=== PATIENT | male | born 1945 | race Caucasian/White ===

== ENCOUNTER 2016-06-22 02:20 | Inpatient (IN) ==
--- NOTE | 2016-06-15 16:06 | EKG Report ---
Test Performed on : 06/15/2016 3:32:38 PM Test Reason : PAT Blood Pressure : / mmHG Vent. Rate : 063 BPM Atrial Rate : 063 BPM P-R Int : 174 ms QRS Dur : 108 ms QT Int : 418 ms P-R-T Axes : 059 -48 111 degrees QTc Int : 427 ms Normal sinus rhythm. 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
[2016-06-15 17:08] LABS: MANUAL DIFF NEEDED? NO
[2016-06-15 17:23] LABS: BASO% 0.4 % (0.0-0.8); EOS# 0.12 X1000 (0.0-0.7); EOS% 1.5 % (0.0-10.0); HEMATOCRIT 29.3 % (42.0-52.0); HEMOGLOBIN 9.8 g/dL (14.0-18.0); IMM GRAN# 0.04 X1000 (0.0-0.04); IMM GRAN% 0.5 % (0.0-0.5); LYMPH# 2.12 X1000 (1.2-3.4); LYMPH% 27.1 % (20.5-51.1); MCHC 33.4 g/dL (33-37); MCV 95.8 FL (81-99); MONO# 0.98 X1000 (0.11-0.59); MONO% 12.5 % (1.7-9.3); PLT 296 X1000 (130-400); RBC 3.06 XMIL (4.7-6.1)
[2016-06-15 17:26] LABS: INR 0.99; PROTIME 10.4 Seconds (9.2-11.7); PTT 25.7 Seconds (22.0-36.0)
[2016-06-15 17:44] LABS: AGAP 11; BUN 8 mg/dL (8-22); CALCIUM 9.4 mg/dL (8.8-10.2); CHLORIDE 91 mmol/L (98-107); COSMO 257; POTASSIUM 4.6 mmol/L (3.5-5.1); SODIUM 128 mmol/L (136-145); TCO2 26 mmol/L (25-35)
[2016-06-22] MEDS ORDERED: CELECOXIB 400 MG PO PRN (07:00)
[2016-06-22] MEDS ORDERED: AMBIEN PO PRN (07:00)
[2016-06-22] MEDS ORDERED: FLOMAX PO PRN (07:00)
[2016-06-22] MEDS ORDERED: ZOFRAN ODT PO PRN (07:00)
[2016-06-22] MEDS ORDERED: MORPHINE IV PRN (07:02)
[2016-06-22] MEDS ORDERED: KLOR-CON PO SCH (09:00)
[2016-06-22] MEDS ORDERED: SINGULAIR PO SCH (09:00)
[2016-06-22] MEDS ORDERED: REGLAN ONE (11:45)
[2016-06-22] MEDS ORDERED: PEPCID ONE (11:45)
[2016-06-22] MEDS ORDERED: LYRICA ONE (11:45)
[2016-06-22] MEDS ORDERED: COLACE ONE (11:45)
[2016-06-22] MEDS ORDERED: KEFZOL 1 GM/D5W 1 GM/50 ML IVPB ONE (11:46)
[2016-06-22] MEDS ORDERED: LR 1,000 ML ONE (11:46)
[2016-06-22] MEDS ORDERED: CELEBREX ONE (11:46)
[2016-06-22] MEDS ORDERED: LANOXIN PO ONE (12:45)
[2016-06-22] MEDS ORDERED: TORADOL ONE (13:10)
[2016-06-22] MEDS ORDERED: DURAMORPH ONE (13:10)
[2016-06-22] MEDS ORDERED: VANCOMYCIN ONE (13:10)
[2016-06-22] MEDS ORDERED: MARCAINE 0.25% PF/EPI 1:200,000 ONE (13:11)
[2016-06-22] MEDS ORDERED: CYKLOKAPRON 1,000 MG/NS 1,000 MG/100 ML IVPB ONE ×2 (13:11→13:12)
[2016-06-22] MEDS ORDERED: SODIUM CHLORIDE 0.9% ONE (13:11)
[2016-06-22] MEDS ORDERED: EXPAREL 1.3% ONE (13:12)
[2016-06-22] MEDS ORDERED: CLAVE SECONDARY SET 11953 ONE (13:12)
[2016-06-22] MEDS ORDERED: NEOSPORIN G.U. IRRIGANT ONE (13:12)
[2016-06-22 14:31] LABS: URINE SOURCE CATH
[2016-06-22 14:43] LABS: BILIRUBIN URINE NEGATIVE (NEGATIVE); BLOOD URINE NEGATIVE (NEGATIVE); COLOR YELLOW; GLUCOSE URINE NEGATIVE (NEGATIVE); LEUKOCYTES URINE NEGATIVE (NEGATIVE); NITRITE URINE NEGATIVE (NEGATIVE); PROTEIN URINE 30 mg/dL (NEGATIVE); SP GRAVITY URINE 1.021; TURBIDITY URINE CLEAR (CLEAR); UROBILINOGEN URINE NORMAL (NORMAL)
[2016-06-22 14:44] LABS: URINE MICRO REVIEW NEEDED? YES
[2016-06-22 14:54] LABS: UR EPITHELIAL CELLS <10 /HPF (<10); URINE BACTERIA NEGATIVE /HPF; URINE RBC <10 /HPF (<10); URINE WBC <10 /HPF (<10)
[2016-06-22] MEDS ORDERED: AMARYL PO SCH (15:00)
[2016-06-22 15:14] LABS: URINE CASTS NONE SEEN; URINE CRYSTALS NONE SEEN; URINE SMALL ROUND CELLS NONE SEEN
--- NOTE | 2016-06-22 16:01 | OPERATIVE NOTE ---
PROCEDURE DATE: 06/22/2016 PREOP DIAGNOSIS: Painful right total knee arthroplasty. POSTOP DIAGNOSIS: Loose right total knee arthroplasty on both the femoral and tibial components. OPERATIVE PROCEDURE: Revision femoral and tibial components, right knee replacement. SURGEON: Elvin Limon MD. NETWORK SECURITY ANALYST: Raghav Morris. ANESTHESIA: General. COMPLICATIONS: None. PROCEDURE IN DETAIL: A 70-year-old male who presents for surgical revision of a right knee replacement. Risks, benefits, and no guarantees were discussed, and he is willing to proceed. He was taken the operating room and satisfactory anesthesia obtained. The right leg was prepped and draped in usual sterile fashion. A time-out was taken to confirm operative site, procedure, and patient. The leg was wrapped with an Esmarch and tourniquet inflated to 350 mmHg. The previous anterior incision was utilized and a medial quad sparing arthrotomy incision created. Cultures were taken from the joint which later showed no evidence of infection or bacteria. The joint was exposed and both the femur and the tibial component noted to be loosely bonded. The femur was gently lifted off with a circumferential dissection with a Gigli saw or osteotome. The cement bone interface on the femur was loose. Afterwards, the tibial component was noted to be loose between the tibial metal and the cement and the tibial metal component removed. The cement was then removed with a saw or osteotome as necessary. Sequential broaching of the tibia with a Site[employer]ins MBT tibial tray system was utilized up to a 16 inch intramedullary stem. The proximal aspect was broached for a metaphyseal sleeve which was noted to be a 53 sleeve. After achieving fixation of the tibia the femur was prepared with the [employer] TC3 femoral system. Distal femoral cut was re-cut just basically at the same level as it was with the finishing cut. A posterior augment was required on the lateral side of 4 mm and on the medial side an 8 mm. The femur and tibia was sized with a size 4 femoral component and size 4 tibial component. Intramedullary stem on the femoral ended up being an 18 with a 75 mm stem connected to a 48 femoral sleeve. Trialing with a 20 mm poly revealed good range of motion and stability. The trial components were removed and the bony surfaces thoroughly irrigated with pulsatile lavage. Cement with a gram of vancomycin was then used to cement the tibial stemmed implant and the femoral stemmed implant into the proper geometry. Final components were as measured a 75 x 18 femoral stem, a size 4, 8 mm medial augment posteriorly, and a size 4, 4 mm lateral augment posteriorly with a 46 porous femoral sleeve and a 5 degree femoral adapter. The tibial component was a size 4 TC3 tibial component with a 53 metaphyseal sleeve and a 75 x 16 stem. The joint capsule was injected with Exparel for pain management. A Hemovac drain was placed. A 20 mm size 4 rotating platform TC3 poly was inserted and the knee reduced. Final range of motion was 0-120 degrees with midline patellar tracking. The arthrotomy was copiously irrigated with irrigant. It was then closed over the drain with #1 Vicryl in the arthrotomy, 2-0 Vicryl in the subcutaneous, and skin arnulfo on the skin edges. Sterile dressings completed the closure and the patient was recovered from anesthesia and transferred to recovery room in stable condition. No intraoperative complications were noted. Instrument count and sponge count was correct at time of closure. cc: Tim Limon MD
[2016-06-22] MEDS ORDERED: NS 1,000 ML ONE (16:10)
--- NOTE | 2016-06-22 16:50 | Diag Imaging Result Document ---
PROCEDURE NAME: KNEE 1-2 VIEWS-RIGHT - 06/22/2016 RIGHT KNEE PORTABLE 2 VIEWS: FINDINGS: There has been total knee arthroplasty. This is apparently a revision of the arthroplasty which was present on 03/24/2016. There are still calcifications in the superficial femoral artery. There appears to be appropriate alignment. IMPRESSION: 1. Postsurgical changes. 2. Atherosclerosis.
[2016-06-22] MEDS ORDERED: ZOFRAN ONE (17:06)
[2016-06-22] MEDS ORDERED: NEO-SYNEPHRINE ONE (17:07)
[2016-06-22] MEDS ORDERED: XYLOCAINE-MPF 2% ONE (17:07)
[2016-06-22] MEDS ORDERED: ROBINUL ONE (17:07)
[2016-06-22] MEDS ORDERED: AMIDATE ONE (17:07)
[2016-06-22] MEDS ORDERED: PIGGYBACK SET 7393 ONE (17:07)
[2016-06-22] MEDS ORDERED: OFIRMEV 1000 MG/ISOTONIC SOLN 1,000 MG/100 ML BOTTLE ONE (17:07)
[2016-06-22] MEDS ORDERED: DECADRON ONE (17:07)
[2016-06-22] MEDS ORDERED: NS 250 ML ONE (17:07)
[2016-06-22] MEDS: LASIX PO SCH (18:31)
[2016-06-22] MEDS: DETROL PO SCH (18:32)
[2016-06-22] MEDS: NEURONTIN PO SCH ×2 (18:34→21:50)
[2016-06-22] MEDS: NORCO-10 PO PRN ×2 (18:47→22:30)
[2016-06-22] MEDS: GLUCOPHAGE XR PO SCH (18:47)
[2016-06-22] MEDS: ADVAIR 500/50 DISKUS INH SCH (19:24)
[2016-06-22] MEDS ORDERED: CELEXA PO SCH (21:00)
[2016-06-22] MEDS ORDERED: CRESTOR PO SCH (21:00)
[2016-06-22] MEDS: KEFZOL 1 GM/D5W 1 GM/50 ML IVPB IV SCH (21:40)
[2016-06-22] MEDS: NS 1,000 ML IV SCH (21:45)
[2016-06-22] MEDS: PERIDEX MT SCH (21:50)
[2016-06-22] MEDS: COREG PO SCH (21:50)
[2016-06-22] MEDS: PRINIVIL PO SCH (21:51)
[2016-06-23] MEDS ORDERED: ATIVAN PO PRN (00:09)
[2016-06-23] MEDS: NS 1,000 ML IV SCH (05:06)
[2016-06-23] MEDS: KEFZOL 1 GM/D5W 1 GM/50 ML IVPB IV SCH (05:06)
[2016-06-23] MEDS: NORCO-10 PO PRN (05:46)
[2016-06-23 05:57] LABS: HEMATOCRIT 27.7 % (42.0-52.0); HEMOGLOBIN 9.2 g/dL (14.0-18.0)
[2016-06-23] MEDS ORDERED: XARELTO PO SCH (06:00)
[2016-06-23 06:19] LABS: CALCIUM 8.7 mg/dL (8.8-10.2); POTASSIUM 4.6 mmol/L (3.5-5.1)
[2016-06-23] MEDS ORDERED: PROTONIX PO SCH (07:00)
[2016-06-23] MEDS ORDERED: LANOXIN PO SCH (07:00)
[2016-06-23] MEDS: ADVAIR 500/50 DISKUS INH SCH (07:38)
[2016-06-23] MEDS ORDERED: FLOMAX PO SCH (09:00)
[2016-06-23] MEDS ORDERED: CELEBREX PO SCH (09:00)
[2016-06-23] MEDS ORDERED: CELECOXIB 400 MG PO SCH (09:00)
[2016-06-23] MEDS: PERIDEX MT SCH (09:42)
[2016-06-23] MEDS: NEURONTIN PO SCH (09:43)
[2016-06-23] MEDS: LASIX PO SCH (09:43)
[2016-06-23] MEDS: COREG PO SCH (09:45)
[2016-06-23] MEDS: GLUCOPHAGE XR PO SCH (09:45)
[2016-06-23] MEDS: DETROL PO SCH (09:46)
[2016-06-23] MEDS: PRINIVIL PO SCH (09:47)
--- NOTE | 2016-06-23 11:15 | HISTORY AND PHYSICAL ---
CHIEF COMPLAINT: Right knee pain. HISTORY OF PRESENT ILLNESS: This is a 70-year-old, white male who had a right total knee arthroplasty performed in [place] about 8 years ago. He originally did well and started having problems with his knee again. He was evaluated in the office and found to need a revision of this right total knee arthroplasty. The surgical procedure, as well as risks and benefits were explained to the patient at this time who agreed to proceed. ALLERGIES: Codeine and aspirin. PAST MEDICAL HISTORY: Serious illnesses: COPD, hypertension, cardiac artery disease, diabetes and CVA. PAST SURGERIES: Right total knee arthroplasty. Eye surgery and right hip. REGULAR MEDICATIONS: Carvedilol 12.5 twice a day. Celecoxib p.r.n. pain. Celexa 20 one at night. Plavix 75 mg 1 a day, digoxin 125 mg 1 a day, Advair 1 twice a day. Lasix 20 once a day, gabapentin 100 twice a day. Glimepiride 2 mg once a day, hydrocodone p.r.n. pain, Prinivil 10 twice a day, lorazepam p.r.n., metformin 500 twice a day, Singulair 10 p.r.n., Zofran 4 p.r.n., Protonix 20 once a day, Klor-Con 10 mEq once a day, Crestor 10 once a day, Flomax 0.4 p.r.n., tolterodine 4 mg once a day. REVIEW OF SYSTEMS: Neuro: Has history of CVA. He states this is affecting his right side somewhat. Heart: History of HI in 2011. No recent chest pain. Respiratory: He has a history of COPD. Abdomen: Has history of reflux and ulcers in the past. : He also has history of BPH with occasional difficulty urinating. PHYSICAL EXAMINATION: GENERAL: This is a 70-year-old male, alert and oriented. His primary care physician is Dr. Lopez. HEENT: Pupils equal, round, reactive. NECK: Fair range of motion without adenopathy. RESPIRATORY: Respirations are equal, unlabored, clear bilaterally. Slightly shallow. No respiratory distress. HEART: Regular rate and rhythm. ABDOMEN: Soft, nontender. Bowel sounds present. EXTREMITIES: He complains of pain in his right knee. He has a well-healed incision. Slightly anterior deformity. He states he has difficulty walking. The pain sometimes goes down his leg. IMPRESSION: Failed right total knee arthroplasty. PLAN: Admit at this time. Revision of right total knee arthroplasty. Dictated by Sergei Dean RN for Tim Limon MD This chart was documented by the indicated scribe, Sergei Dean RN and accurately reflects the services I performed and decisions made by me, Tim Limon MD, as attested by the provider's signature. cc: Tim Limon MD
[2016-06-23 15:43] VITALS: BP 112/47
[2016-06-23] MEDS ORDERED: PLAVIX PO SCH (21:00)
--- NOTE | 2016-06-24 06:18 | DISCHARGE SUMMARY ---
ADMISSION DATE: 06/22/2016 DISCHARGE DATE: 06/23/2016 ADMITTING DIAGNOSES: 1. Painful right total knee arthroplasty. 2. Chronic obstructive pulmonary disease. 3. Hypertension. 4. Coronary artery disease. 5. Diabetes mellitus. 6. Cerebrovascular accident. DISCHARGE DIAGNOSES: 1. Painful right total knee arthroplasty. 2. Painful right total knee arthroplasty. 3. Chronic obstructive pulmonary disease. 4. Hypertension. 5. Coronary artery disease. 6. Diabetes mellitus. 7. Cerebrovascular accident. ADMITTING HISTORY AND HOSPITAL COURSE: Mr. Schofield is a 70-year-old white male who was having pain after having a total knee arthroplasty about eight years ago. He had surgery to revise that on 06/22/2016. After surgery, he remained afebrile. His vital signs remained stable. His incision looks good, clean and dry but no signs or symptoms of infection or DVT. This morning his hematocrit is 27.7. We will plan to discharge him home today with home health. He currently is ambulating about 250 feet with a front wheel walker and we plan to send him home with home health today. DISCHARGE MEDICATIONS: 1. Flomax 0.4 mg p.o. daily. 2. Singulair 10 mg p.o. daily. 3. Lorazepam 1 mg p.o. p.r.n. 4. Klor-Con 10 mEq p.o. daily. 5. Metformin 500 mg p.o. b.i.d. 6. Celexa 20 mg p.o. at bedtime. 7. Carvedilol 12.5 mg p.o. b.i.d. 8. Crestor 10 mg p.o. at bedtime. 9. Celebrex 200 mg p.o. p.r.n. for pain. 10. Digoxin 125 mcg p.o. daily. 11. [place] 10 1-2 p.o. q.4-6 hours p.r.n. for pain. 12. Gabapentin 100 mg p.o. b.i.d. 13. Advair Diskus 500-50 one inhaled b.i.d. 14. Plavix 75 mg p.o. at bedtime. 15. Ambien 5 mg p.o. p.r.n. a 16. Tolterodine Tartrate 4 mg p.o. daily. 17. Zofran 4 mg p.o. p.r.n. 18. Protonix 20 mg p.o. daily. 19. Glimepiride 2 mg p.o. daily. 20. Lasix 20 mg p.o. daily. 21. Lisinopril 10 mg p.o. daily. DISCHARGE PLAN: Mr. Schofield will be discharged home today where he will begin a home physical therapy regimen. Home health will be coming out and working with him in his own home. I talked with him about if has any worsening signs or symptoms, any drainage from his incision, any fever, chills or any problems, to call office immediately and let us know and we will be discharging him with some pain medication and he can continue his Plavix upon discharge for anticoagulant purposes. We will need to see him back in Dr. Limon's office in about 10 days where we can take the arnulfo out. Dictated by ZENA Milan for Tim Limon MD cc: ZENA Milan MD
== END 2016-06-23 16:02 | disposition home health service (06) ==
LOC: SURHOLD 02:20 → 4N 14:37
PROVIDERS: ADMIT Orthopaedic Surgery Adult Reconstructive Orthopaedic Surgery; ATTEND Orthopaedic Surgery Adult Reconstructive Orthopaedic Surgery

== ENCOUNTER 2016-09-06 12:11 | Inpatient (IN) ==
[2016-09-06] MEDS ORDERED: NS 1,000 ML IV ONE (12:40)
[2016-09-06 13:01] LABS: ALLEN TEST YES; BE 4.5 mmoll (-3.0-3.0); BLOOD TYPE ARTERIAL; DRAW SITE R RADIAL; METHB 1.3 % (0.0-1.5); MODALITY ROOM AIR; O2(CT) 9.3 mL/dL (15.0-23.0); PCO2(98.6) 35 mmHg (35-45); PO2(98.6) 74 mmHg (60-100); SAMPLE BLOOD; SAO2 96.7 % (95.0-100.0); THB 6.9 g/dL (11.5-17.4); pH(98.6) 7.51 (7.35-7.45)
--- NOTE | 2016-09-06 13:02 | Diag Imaging Result Doc PS360 ---
EXAM: CHEST-PORTABLE HISTORY: AMS TECHNIQUE: AP portable upright at 1255 COMMENT: There are granulomata in the right lower lobe. There is a pacemaker on the left. The heart size is slightly enlarged. There is apparent subsegmental atelectasis in the right costophrenic sulcus which was not present on 12/11/2015. Otherwise has been no significant change. IMPRESSION: Minimal right basilar atelectasis. Electronically signed by Vic Briggs 09/06/2016 1:00 PM
[2016-09-06] MEDS ORDERED: TYLENOL PR ONE (13:03)
--- NOTE | 2016-09-06 13:13 | EKG Report ---
Test Performed on : 09/06/2016 12:59:23 PM Test Reason : AMS Blood Pressure : / mmHG Vent. Rate : 088 BPM Atrial Rate : 088 BPM P-R Int : 184 ms QRS Dur : 102 ms QT Int : 402 ms P-R-T Axes : 062 -44 080 degrees QTc Int : 486 ms Normal sinus rhythm. Possible Left atrial enlargement Left axis deviation Anteroseptal infarct (cited on or before 30-OCT-2012) Abnormal ECG When compared with ECG of 15-JUN-2016 15:32, Nonspecific T wave abnormality no longer evident in Inferior leads T wave inversion less evident in Lateral leads QT has lengthened Unconfirmed Result
[2016-09-06 13:42] LABS: EOS# 0.01 X1000 (0.0-0.7); HEMATOCRIT 19.4 % (42.0-52.0); HEMOGLOBIN 6.7 g/dL (14.0-18.0); IMM GRAN# 0.09 X1000 (0.0-0.04); IMM GRAN% 0.4 % (0.0-0.5); LYMPH# 1.39 X1000 (1.2-3.4); MANUAL DIFF NEEDED? NO; MCH 31.6 PG (27-31); MCHC 34.5 g/dL (33-37); MCV 91.5 FL (81-99); MPV 9.7 FL (7.4-10.4); NEUT% 87.6 % (42.2-75.2); PLT 381 X1000 (130-400); RBC 2.12 XMIL (4.7-6.1)
[2016-09-06 13:59] LABS: INR 1.06; PROTIME 11.2 Seconds (9.2-11.7); PTT 26.7 Seconds (22.0-36.0)
[2016-09-06 14:00] LABS: ALBUMIN 3.3 g/dL (3.5-5.0); CALCIUM 8.5 mg/dL (8.8-10.2); POTASSIUM 3.2 mmol/L (3.5-5.1); TOTAL BILIRUBIN 0.46 mg/dL (0.20-1.00); TOTAL PROTEIN 5.7 g/dL (6.3-8.3)
--- NOTE | 2016-09-06 14:12 | Diag Imaging Result Doc PS360 ---
EXAM: HEAD W/O CONTRAST HISTORY: AMS TECHNIQUE: COMPARISON: 07/22/2014 FINDINGS: No parenchymal hemorrhage. No epidural or subdural hematoma. No subarachnoid hemorrhage. No mass identified on this noncontrasted exam. There is diffuse atrophy with prominent microvascular ischemic changes and old lacunas. No sinus opacification. IMPRESSION: No hemorrhage. Atrophy with chronic ischemic changes and old lacunes similar to the prior exam. Electronically signed by Pepe Portillo 09/06/2016 2:10 PM
[2016-09-06] MEDS ORDERED: TYLENOL ONE (14:18)
[2016-09-06] MEDS ORDERED: TYLENOL PO ONE (14:27)
[2016-09-06] MEDS ORDERED: VANCOMYCIN 1 GM/NS 1 GM/250 ML IVPB IV ONE (15:21)
--- NOTE | 2016-09-06 15:27 | PROVIDER DOCUMENTATION ---
This chart was entered by Swathi Zarco Scribe, acting as scribe for Vida Hunt MD. HPI-Abdominal Pain/GI Problem - General Chief Complaint: Altered Mental Status Stated Complaint: AMS-slow to repsond, vomiting Time Seen by Provider: 09/06/16 12:34 Source: patient, family () Allergies/Adverse Reactions: Patient Allergies Allergy/AdvReac Type Severity Reaction Status Date / Time codeine [Codeine] Allergy Severe NAUSEA/VOMI Verified 06/22/16 11:53 TING aspirin AdvReac NAUSEA/VOMI Verified 06/22/16 11:53 TING Home Medications: Home Medication List Medication Instructions Recorded Confirmed Last Taken Type Carvedilol 12.5 mg PO BID 10/30/12 09/06/16 09/05/16 12:00 History Metformin HCl [Glumetza] 500 mg PO BID 10/30/12 09/06/16 09/05/16 17:00 History Montelukast [Singulair] 10 mg PO DAILY PRN 10/30/12 09/06/16 09/05/16 12:00 History Tamsulosin [Flomax] 0.4 mg PO PRN PRN 10/30/12 09/06/16 09/05/16 12:00 History Celecoxib 200 mg PO PRN PRN 12/13/14 09/06/16 05/22/16 History Digoxin [Digitek] 125 mcg PO DAILY 12/13/14 09/06/16 09/05/16 12:00 History ROSUVAstatin [Crestor] 10 mg PO QHS 12/13/14 09/06/16 09/05/16 12:00 History Fluticasone/Salmeterol [Advair 1 each IH BID 11/06/15 09/06/16 05/22/16 History 500-50 Diskus] Gabapentin 100 mg PO BID 11/06/15 09/06/16 09/05/16 12:00 History Ondansetron [Zofran Odt] 4 mg PO PRN PRN 06/15/16 09/06/16 09/06/16 07:00 History Pantoprazole [Protonix] 20 mg PO DAILY@0700 06/15/16 09/06/16 09/05/16 11:00 History Tolterodine Tartrate [Tolterodine 4 mg PO DAILY 06/15/16 09/06/16 05/12/16 History Tartrate ER] Zolpidem [Ambien] 5 mg PO PRN PRN 06/15/16 09/06/16 05/12/16 History LISINOpril [Prinivil] 10 mg PO DAILY 06/22/16 09/06/16 09/05/16 12:00 History Hydrocodone/APAP 10 mg/325 mg 1 - 2 each PO Q6H PRN PRN #60 06/23/16 09/06/16 09/02/16 Rx [Doole-10] - History of Present Illness-ABD Nature of Presenting Problems: Pt is 70 y/o M presents to ED via EMS for abdominal pain. Pt's states N and V. Pt's states symptoms have been present for 2 days. Pt's states hypotension this am. Pt's states he is slow to respond as well. Pt's states emesis was brown and black in color. Pt's states recent loss of appetite and weight loss. Abdominal Pain Onset Location: reports: generalized abdomen Pain Radiation: reports: no radiation Quality of Pain: reports: aching, cramping Severity in ED: reports: mild Onset/Duration: reports: 2 days ago Timing: reports: still present Activities at Onset: reports: light activity Modifying Factors: improves with: nothing Associated Symptoms: reports: loss of appetite, nausea, vomiting, weakness. denies: anxiety, arm pain, back/neck pain, chest pain, constipation, cough, diaphoresis, diarrhea, dizziness, EENT symptoms, fatigue, fever/chills, genitourinary problems, headaches, heartburn, joint pain, malaise, muscle aches , sinus congestion/drainage, rash, seizure, shortness of breath, sensory/motor loss, pain with inspiration, swelling/mass in abdomen, syncope, trouble walking Last BM: unsure Dark Stools Present?: reports: none noticed Rectal Bleeding: reports: none Emesis Description: reports: other (brown and black) Bruising or Bleeding Gums?: No Similar Symptoms Previously?: Yes Recently seen or treated by another doctor?: No Review of Systems - Adult - REVIEW OF SYSTEMS - ADULT Constitutional: reports: weight loss. denies: chills, fever, fatique, weight gain Eyes: reports: no symptoms reported Ears, Nose, Mouth & Throat: reports: no symptoms reported Cardiovascular: reports: no symptoms reported Respiratory: reports: no symptoms reported Gastrointestinal: reports: abdominal pain, nausea, poor appetite, vomiting. denies: diarrhea Genitourinary: reports: no symptoms reported Musculoskeletal: reports: no symptoms reported Integumentary: reports: no symptoms reported Neurological: reports: no symptoms reported Psychiatric: reports: no symptoms reported Endocrine: reports: no symptoms reported Hematologic/Lymphatic: reports: no symptoms reported Allergic/Immunologic: reports: no symptoms reported All Other Systems: Reviewed and Negative Past History - Adult - PAST MEDICAL HISTORY-ADULT Review of Records: reports: Nursing Assessment Review, Medications Reviewed, Social history reviewed & non-contributory. Major Childhood Illnesses: reports: denies history Cardiovascular: reports: A-Fib, CAD, HTN Respiratory: reports: denies history Gastrointestinal: reports: denies history Obstetrical/Gynecological: reports: denies history Genitourinary: reports: denies history Musculoskeletal: reports: arthritis Neurological: reports: CVA Endocrine/Immune: reports: Diabetes Other Conditions: reports: denies history - PRIOR SURGERIES/PROCEDURES Surgical/Procedure History: reports: appendectomy, pacemaker, joint replacement - IMMUNIZATION STATUS Childhood Immunizations: See Nurse Assessment Flu Vaccine: See Nurse Assessment - FAMILY HISTORY Family History: reviewed, not pertinent - SOCIAL HISTORY Smoking: denies Substance Use: denies Living Situation: family Physical Exam-General - PHYSICAL EXAM-ADULT Initial Vital Signs Reviewed: Yes - CONSTITUTIONAL General Appearance: alert, no apparent distress, thin, slow to respond. negative: appears well (ill in appearance) - EYES Eyes: PERRL/EOMI, pink conjunctivae - HEAD, EARS, NOSE, MOUTH & THROAT HENMT: normocephalic/atraumatic. negative: moist mucous membranes (dry mucous membranes), pharyngeal erythema - NECK Neck: normal inspection - RESPIRATORY Respiratory: chest non-tender, lungs clear, normal breath sounds - CARDIOVASCULAR Cardiovascular: normal peripheral pulses, regular rate, rhythm - GASTROINTESTINAL (ABDOMEN) Abdominal Exam: normal bowel sounds, soft, tenderness (generalized) - GENITOURINARY Rectal Exam: normal rectal tone, black stool. negative: hemorrhoids, tenderness - LYMPHATIC Lymphatic: no adenopathy - MUSCULOSKELETAL Back Exam: normal inspection, no CVA tenderness, no vertebral tenderness Extremity: normal range of motion, non-tender, normal inspection - SKIN Integumentary: normal turgor, warm/dry, pallor - NEUROLOGIC Neurologic: grossly normal - PSYCHIATRIC Psych/Mental Status: oriented x 3, other (slow to response) Progress - PLAN OF CARE/RESULTS Progress/Plan/Lab Results: Vital Signs - 8 hr 09/06/16 12:13 Temperature 97.5 F L Pulse Rate 87 Respiratory Rate 18 Blood Pressure 86/43 O2 Sat by Pulse Oximetry 97 Laboratory Results - last 24 hr 09/06/16 12:50 Specimen Type ARTERIAL Sample Site R RADIAL pH 7.51 H pCO2 35 pO2 74 HCO3 28.4 H Base Excess 4.5 H Oxyhemoglobin 94.5 L ABG O2 Sat (Calculated) 9.3 L ABG O2 Saturation 96.7 ABG Carboxyhemoglobin 1.00 ABG Methemoglobin 1.3 Dominic Test YES A-a O2 Difference 32.0 Total Hemoglobin 6.9 L Lactate 3.60 H Blood Gas Modality ROOM AIR FiO2 % 21.0 Orders Category Date Time Status Cardiac Monitoring DIRECTED Care 09/06/16 12:40 Active Oxygen Therapy- ED Nursing DIRECTED Care 09/06/16 12:40 Active Saline Loc NOW Care 09/06/16 12:40 Active CHEST-PORTABLE [RAD] Stat Exams 09/06/16 12:40 Completed HEAD W/O CONTRAST [CT] Stat Exams 09/06/16 12:41 Ordered ABG [RESP] Routine Lab 09/06/16 12:50 Completed ALCOHOL BLOOD Stat Lab 09/06/16 12:40 Uncollected BLOOD CULTURE [BLDCUL] Stat Lab 09/06/16 13:03 Uncollected CBC WITH ELECTRONIC DIFF [HEME] Stat Lab 09/06/16 12:40 Uncollected CK PROFILE [SP CHEM] Stat Lab 09/06/16 12:40 Uncollected COMPREHENSIVE METABOLIC PANEL [CHEM] Stat Lab 09/06/16 12:40 Uncollected DIGOXIN [TDM] Stat Lab 09/06/16 13:03 Ordered PRO B-NATRIURETIC PEPTIDE Stat Lab 09/06/16 12:40 Uncollected PROTIME WITH INR [COAG] Stat Lab 09/06/16 12:40 Uncollected PTT [COAG] Stat Lab 09/06/16 12:40 Uncollected TROPONIN T Stat Lab 09/06/16 12:40 Uncollected URINALYSIS W/POSS RFLX CULT-1 [URINALYSIS] Stat Lab 09/06/16 12:40 Uncollected URINE DRUG SCREEN Stat Lab 09/06/16 12:40 Uncollected 0.9% Sodium Chloride Inj [Ns] 1,000 ml Med 09/06/16 12:40 Active IV 100 mls/hr Acetaminophen [Tylenol] Med 09/06/16 13:03 Discontinued 650 mg OR NOW ONE Pulse Oximetry Stat Oth 09/06/16 12:40 Active EKG [EKG] Stat Ther 09/06/16 12:40 Draft Result Diagrams: 09/06/16 13:19 09/06/16 13:19 - EKG 1 Time of EKG reading by physician:: 12:59 EKG Read and Signed by:: Vida Hunt EKG Interpretation (*Must complete 3 of following elements*): Abnormal ( anteroseptal infarct, age undetermined) Rate: 88 Rhythm: normal sinus rhythm Comments: possible left atrial enlargement; left axis deviation - XRAY 1 XRAY Study: Chest Impression: Abnormal XRAY Interpretation: minimal right basilar atelectasis - CT/MRI 1 CT Study: Head Impression: Abnormal (atrophy with chronic ischemic changes and old lacunes similar to the prior exam) - CONSULTS/PCP/HOSPITALIST Notification #1 *Consult/PCP/Hospitalist*: [facility]/Dr. Valenzuela Time Discussed: 15:26 Consult Disposition: Will see in ED, Admit Departure - Departure Date of Disposition Decision: 09/06/16 Time of Disposition Decision: 15:20 DIAGNOSIS: Hypotension, Upper GI bleed, Altered mental status, Anemia Disposition: ADMITTED INPATIENT 09 Certified Medical Emergency: Emergent Condition: Stable Additional Freetext Instructions: ED Follow Up Instructions: You have been treated by a care provider in the Emergency Department. These instructions are being provided to you so you can have an understanding of how to care for yourself upon discharge. Upon discharge from the Emergency Department, you are responsible for making arrangements for follow-up care by a physician of your choice. Take all prescribed medications as directed. Return to the Emergency Department immediately for any new or worsening symptoms. You may call the Physician Referral phone number at [phone] to obtain a list of Physicians who are taking new patients. Referrals and Follow-Ups: Wilian Lopez DO [Primary Care Provider] - - Critical Care Note This patient required my direct & personal management of CC.: Yes Total Time (mins): 35 Critical Care Statement: This patient required my direct personal management to treat or rule out processes, the absence of which, could potentiallly result in sudden, clinically significant life or limb threatening deterioration. This chart was documented by the indicated scribe, (Swathi Zarco Scribe) and accurately reflects the services I performed and decisions made by me, Vida Hunt MD, as attested by the provider's signature.
[2016-09-06] MEDS ORDERED: ZOSYN 3.375 GM/NS 3.375 GM/50 ML IVPB IV ONE (16:00)
[2016-09-06] MEDS ORDERED: LASIX IV PRN (16:32)
--- NOTE | 2016-09-06 16:41 | Diag Imaging Result Doc PS360 ---
EXAM: KNEE 3 VIEWS RIGHT INDICATION: possible septic arthritis TECHNIQUE: 3 views COMPARISON: 07/06/2016 FINDINGS: There has been a prior right knee arthroplasty. The arthroplasty hardware is in the expected position. There is no radiographic evidence of hardware loosening. There is no discrete fracture, dislocation, or significant intrinsic osseous lesion, otherwise. There are no new bony erosions. The surrounding soft tissues are essentially unremarkable. IMPRESSION: No definite acute pathology by plain radiograph. Electronically signed by Tim Linn 09/06/2016 4:39 PM
[2016-09-06] MEDS ORDERED: ZOFRAN IV PRN (16:54)
[2016-09-06] MEDS ORDERED: VANCOMYCIN IV PER PHARMACY MISC SCH (16:54)
[2016-09-06] MEDS ORDERED: MAGNESIUM SULFATE 2 GM/S.W.I. 2 GM/50 ML IVPB IV ONE (17:52)
[2016-09-06] MEDS ORDERED: LEVOPHED 8 MG in D5 1/2 NS 250 ML IV SCH (18:45)
[2016-09-06] MEDS: POTASSIUM CHLORIDE 20 MEQ/SWI 20 MEQ/100 ML IVPB IV SCH ×2 (18:50→22:46)
--- NOTE | 2016-09-06 19:21 | PROGRESS NOTE ---
DATE: 09/06/2016 We were called to the ER after an EKG was obtained and there was reported worsening ST-elevation in the anterior leads. After reviewing the EKG, indeed ST-elevation was slightly worse. We spoke with the patient. He denies any chest pain or shortness of breath at this time. We discussed the case and the EKGs with Dr. Angelo with cardiology, who felt that given the patient's lack of chest pain and resemblance of EKG to previous EKGs that the patient was not having ST-elevation, possibly fabienne-infarct ischemia secondary to profound anemia and hypotension. He would not recommend heart catheterization at this time given the patient's GI bleeding. Again, the patient is pain free. We are trending his enzymes, which are pending at this time. He will be going to the ICU for his anemia and hypotension but overall, currently the patient is stable and unchanged. Dictated by ZENA Ramírez for Puja Valenzuela MD cc: ZENA Ramírez MD
[2016-09-06] MEDS: DUONEB (A & A) INH SCH ×2 (19:30→23:10)
[2016-09-06 19:43] LABS: URINE SOURCE CATH
[2016-09-06] MEDS: PROTONIX 80 MG in NS 80 ML IV SCH (19:49)
--- NOTE | 2016-09-06 19:49 | HISTORY AND PHYSICAL ---
PCP: Dr. Wilian Lopez. COLLEGE ADMINISTRATOR: Dr. Harry Blanton. AIRCRAFT RESTORER: Dr. Limon. CHIEF COMPLAINT: Hypotension. HISTORY OF PRESENT ILLNESS: Mr. Schofield is a 70-year-old male with multiple medical problems including ischemic cardiomyopathy with a known EF of 20-25%, CAD, congestive heart failure, chronic hyponatremia and multiple others who presents with hypotension. Patient is a poor historian and is confused at this time, his is at the bedside able to answer questions. She reports that he had what she called flu-like symptoms starting on Tuesday which actually just consisted of vomiting. After looking back and speaking with the patient she did report that he was vomiting coffee-ground emesis and also having dark tarry and sticky stools consistent with melena. This morning the patient was hypotensive despite IV fluids. The patient was actually at [facility] 2 weeks ago for what the family reports is anemia and required blood transfusion. The patient's reports that he did not have a GI evaluation however we do not have those records at this time and we are currently requesting those from [facility]. The patient himself denies any abdominal pain. He does have some mild epigastric tenderness to palpation but otherwise his abdominal exam is within normal limits. When he got to the ER he had a host of laboratory abnormalities including profound anemia with a hemoglobin and hematocrit of 6 and 19 respectively, he was also noted to have leukocytosis with a white count of 23 and a left shift. ABG revealed metabolic alkalosis and a lactic acid of 3.6. His chemistry also reveal hyponatremia and hypokalemia with mild renal insufficiency. Imaging of the chest only showed minimal right basilar atelectasis. Head CT showed chronic change but nothing acute. The patient has been hypotensive with systolic blood pressure anywhere from 70-90. Type and screen has been ordered. We are going to transfuse the patient and put him in the ICU. PAST MEDICAL HISTORY: 1. Ischemic cardiomyopathy. 2. Systolic heart failure with known EF of 20-25% last done in 2014 but the family reports he had a complete cardiac workup done at [facility] 2 weeks ago. 3. Coronary artery disease. 4. Hypertension. 5. Hyperlipidemia. 6. Type 2 diabetes. 7. Chronic hyponatremia. 8. COPD. 9. Chronic anemia. 10. BPH. 11. History of CVA in 2011. SURGICAL HISTORY: He has had ICD, hip repair, right knee replacement, right knee arthroplasty revision done on 06/22/2016. SOCIAL HISTORY: Patient denies any tobacco, alcohol or drug use. He lives with his who is at the bedside. FAMILY HISTORY: Noncontributory. REVIEW OF SYSTEMS: Unable to obtain. HOME MEDICATIONS: Carvedilol 12.5 mg b.i.d., Celebrex 200 mg as needed by mouth, Digitek 125 mcg p.o. daily, Advair 550 one each inhaled b.i.d., Neurontin 100 mg p.o. b.i.d., [place] 10 as needed for pain, Prinivil 10 mg daily, metformin 500 mg b.i.d., Singulair 10 mg daily, Zofran 4 mg as needed for nausea, vomiting, Protonix 20 mg daily, Crestor 10 mg p.o. at bedtime, Flomax 0.4 mg p.o. as needed, tolterodine tartrate 4 mg daily, Ambien 5 mg at bedtime. ALLERGIES: Codeine and aspirin. PHYSICAL EXAMINATION: VITAL SIGNS: Blood pressure is 81/51, heart rate is 85, respiratory rate is 16 , O2 saturation 96% on nasal cannula, temperature is 97.5 degrees. GENERAL: This is a frail and elderly appearing 70-year-old male lying in hospital bed in no acute distress. NEUROLOGIC: The patient is awake and alert but he is confused. He follows commands without focal deficits. HEENT: Head is atraumatic and normocephalic. His pupils are equal, round, reactive to light. Oral mucosa is dry. Overall his mucous membranes are pale. NECK: Supple. Trachea is midline. CHEST: Clear to auscultation bilaterally. CV: Regular rate and rhythm. S1-S2 is noted. GI: Soft, nondistended. He does have some very mild epigastric tenderness to palpation. EXTREMITIES: Without edema, clubbing or cyanosis. Pulses diminished bilaterally. DIAGNOSTIC DATA: Head CT chronic changes. Chest x-ray minimal atelectasis, nothing acute. EKG sinus rhythm with diffuse ST-elevation but this is chronic after reviewing previous EKGs. Lab work. WBC 22.3, hemoglobin 6.7, hematocrit 19.4, platelet count 381,00, MCV 91.5, INR 1.06. ABG on room air pH 7.51, CO2 35, O2 74, bicarb 28.4, lactic acid 3.6. Sodium 128, potassium 3.2, chloride 85, CO2 26, anion gap 17, BUN 74, creatinine 1.3, glucose 227, calcium 8.5, bilirubin 0.46, AST 12, ALT 9, alkaline phosphatase 77, troponin 0.051, proBNP 3151, albumin 3.3. ASSESSMENT AND PLAN: 1. Toxic metabolic encephalopathy: Likely multifactorial to include hypotension , possible sepsis and possible dementia. Will search for and treat underlying conditions, monitor his neuro status closely, head CT does not show anything acute. He does not have any focal deficits. 2. Hypotension: The patient certainly has indicators for sepsis so we will treat him for underlying infection but given his vomiting and hematemesis as well as anemia we can assume he has profound hypovolemia. Will continue with fluids and blood products and being careful to not overload his heart. 3. Upper gastrointestinal bleed with associated anemia: Patient going to be placed in ICU. We are going to keep him n.p.o. and start Protonix drip. GI has been consulted and we are going to transfuse 2 units of PRBCs now. Will check iron studies in the morning. 4. Possible sepsis/leukocytosis: Blood cultures have been obtained and broad- spectrum antibiotics have been initiated. His right knee is swollen and warm to touch so we are going to check a knee x-ray and consult Dr. Limon for possible joint aspiration. In the meantime will continue antibiotics until cultures have returned. Will continue with IV fluids and check another lactic acid. 5. Possible septic arthritis: As above. 6. Hypovolemic hyponatremia: We are going to check iron studies and continue IV fluids. Check another sodium in the morning. 7. Hypokalemia: Magnesium has been ordered and IV potassium has been initiated as well. 8. 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 so we are going to get those records. 9. Ischemic cardiomyopathy/congestive heart failure: Patient denies any chest pain or shortness of breath, no other symptoms of fluid volume overload at this time. EKG does show some abnormalities but this seems to be chronic. Will trend out his enzymes and get records from [facility]. 10. Further recommendations to follow. We are going to give him SCDs for DVT prophylaxis given his bleeding and anemia. CRITICAL CARE TIME: With this patient 45 minutes. Dictated by ZENA Ramírez for Puja Valenzuela MD cc: Harry Valenzuela MD The patient was seen and examined by me. I agree with the assessment and plan as dictated. MTDD
[2016-09-06] MEDS ORDERED: VANCOMYCIN 1,800 MG in NS 500 ML IV ONE (20:00)
[2016-09-06 20:01] LABS: UR AMPHETAMINES QUAL NONE DETECTED (NONE DETECT); UR BARBITUATES QUAL NONE DETECTED (NONE DETECT); UR BENZODIAZEPIN QUAL NONE DETECTED (NONE DETECT); UR CANNABINOIDS QUAL NONE DETECTED (NONE DETECT); UR COCAINE QUAL NONE DETECTED (NONE DETECT); UR METHADONE QUAL NONE DETECTED (NONE DETECT); UR OPIATES QUAL NONE DETECTED (NONE DETECT); UR OXYCODONE QUAL NONE DETECTED (NONE DETECT); UR PCP QUAL NONE DETECTED (NONE DETECT)
[2016-09-06 20:02] LABS: UR CREAT RANDOM 63.8 mg/dL (14-26); UR PROT RANDOM 22.5 mg/dL
[2016-09-06 20:04] LABS: BILIRUBIN URINE NEGATIVE (NEGATIVE); BLOOD URINE NEGATIVE (NEGATIVE); COLOR YELLOW; GLUCOSE URINE NEGATIVE (NEGATIVE); LEUKOCYTES URINE LARGE (NEGATIVE); NITRITE URINE NEGATIVE (NEGATIVE); PROTEIN URINE NEGATIVE (NEGATIVE); SP GRAVITY URINE 1.017; TURBIDITY URINE HAZY (CLEAR); UROBILINOGEN URINE NORMAL (NORMAL)
[2016-09-06 20:07] LABS: URINE MICRO REVIEW NEEDED? YES
[2016-09-06 20:09] LABS: UR EPITHELIAL CELLS <10 /HPF (<10); URINE BACTERIA 1+ /HPF; URINE CULTURE NEEDED? YES; URINE RBC <10 /HPF (<10); URINE WBC TNTC /HPF (<10)
[2016-09-06 20:29] LABS: URINE CASTS NONE SEEN
[2016-09-06] MEDS: HUMALOG SUBQ SCH (21:32)
[2016-09-06 22:31] LABS: HEMATOCRIT 25.3 % (42.0-52.0); HEMOGLOBIN 8.5 g/dL (14.0-18.0)
[2016-09-06] MEDS: ZOSYN 3.375 GM/NS 3.375 GM/50 ML IVPB IV SCH (22:41)
[2016-09-07] MEDS: PROTONIX 80 MG in NS 80 ML IV SCH ×3 (03:37→22:43)
[2016-09-07] MEDS: ZOSYN 3.375 GM/NS 3.375 GM/50 ML IVPB IV SCH ×4 (04:26→22:21)
[2016-09-07] MEDS: DUONEB (A & A) INH SCH ×4 (04:57→16:11)
--- NOTE | 2016-09-07 06:09 | EKG Report ---
Test Performed on : 09/07/2016 05:25:28 AM Test Reason : Abnormal EKG Blood Pressure : / mmHG Vent. Rate : 076 BPM Atrial Rate : 076 BPM P-R Int : 190 ms QRS Dur : 104 ms QT Int : 396 ms P-R-T Axes : 065 -52 080 degrees QTc Int : 445 ms Normal sinus rhythm. Left anterior fascicular block Anterior infarct (cited on or before 30-OCT-2012) ACUTE LA / STEMI Abnormal ECG When compared with ECG of 06-SEP-2016 18:10, (Unconfirmed) ST no longer elevated in Lateral leads Confirmed by Manolo SANTOS, Ted Mcelroy ([id number]) on 09/07/2016 2:17:09 PM
[2016-09-07] MEDS: HUMALOG SUBQ SCH ×4 (06:19→19:59)
[2016-09-07 06:21] LABS: HEMATOCRIT 26.5 % (42.0-52.0); HEMOGLOBIN 9.2 g/dL (14.0-18.0); MCH 31.3 PG (27-31); MCHC 34.7 g/dL (33-37); MCV 90.1 FL (81-99); MPV 9.6 FL (7.4-10.4); RBC 2.94 XMIL (4.7-6.1)
--- NOTE | 2016-09-07 06:25 | EKG Report ---
Test Performed on : 09/06/2016 5:33:24 PM Test Reason : possible elevation Blood Pressure : / mmHG Vent. Rate : 087 BPM Atrial Rate : 087 BPM P-R Int : 190 ms QRS Dur : 092 ms QT Int : 400 ms P-R-T Axes : 062 -49 080 degrees QTc Int : 481 ms Normal sinus rhythm. Possible Left atrial enlargement Left anterior fascicular block Anterolateral infarct (cited on or before 30-OCT-2012) Abnormal ECG When compared with ECG of 06-SEP-2016 12:59, (Unconfirmed) Questionable change in initial forces of Septal leads ST now depressed in Inferior leads ST elevation now present in Lateral leads Unconfirmed Result
--- NOTE | 2016-09-07 06:35 | EKG Report ---
Test Performed on : 09/06/2016 6:10:45 PM Test Reason : No Order in [facility] Blood Pressure : / mmHG Vent. Rate : 088 BPM Atrial Rate : 088 BPM P-R Int : 190 ms QRS Dur : 100 ms QT Int : 400 ms P-R-T Axes : 062 -46 080 degrees QTc Int : 484 ms Normal sinus rhythm. Possible Left atrial enlargement Left anterior fascicular block Anteroseptal infarct (cited on or before 30-OCT-2012) ACUTE MA / STEMI Abnormal ECG When compared with ECG of 06-SEP-2016 18:08, (Unconfirmed) No significant change was found Unconfirmed Result
[2016-09-07 06:53] LABS: AGAP 15; BUN 60 mg/dL (8-22); CALCIUM 8.6 mg/dL (8.8-10.2); CHLORIDE 97 mmol/L (98-107); COSMO 287; POTASSIUM 3.4 mmol/L (3.5-5.1); SODIUM 133 mmol/L (136-145); TCO2 21 mmol/L (25-35)
--- NOTE | 2016-09-07 07:04 | CONSULTATION ---
DATE OF CONSULTATION: 09/07/2016 REFERRING PHYSICIAN: Puja Valenzuela M.D. PRIMARY CARE PHYSICIAN: Wilian Lopez M.D. FORENSIC EXAMINER: Harry Blanton M.D. INDICATION FOR CONSULTATION: 1. Coffee-ground emesis. 2. Melena. HISTORY OF PRESENT ILLNESS: The patient is a 70-year-old white male with multiple medical problems including ischemic cardiomyopathy with an ejection fraction of 20-25%, coronary artery disease, congestive heart failure, hyponatremia, diabetes mellitus 2 and COPD who presented with hypotension. According to his , he began to have nausea and vomiting on Tuesday. She noted that the emesis was coffee-ground in appearance. He also began to have black tarry stools over the weekend consistent with melena. In the last 4-6 hours prior to admission, they were unable to obtain a blood pressure and he was unable to sit up. He was profoundly weak at the time of presentation. He was previously admitted to [facility] approximately 2 weeks ago. He was found to be significantly anemic and required blood transfusion. However, according to the family, the patient did not undergo endoscopic evaluation. He had a stroke approximately 5 years ago and was fed via percutaneous endoscopic gastrostomy tube for several weeks. However, approximately 10 days after hospital discharge, the PEG was removed and he was able to tolerate a regular diet. His family reports that for the last month to 6 weeks, his appetite has decreased and he has been having diarrhea on a regular basis. We are asked to perform endoscopic evaluation to identify the source of bleeding, and to assist with management of his diarrhea. PAST MEDICAL HISTORY: 1. Ischemic cardiomyopathy as noted above. 2. Systolic heart failure with an ejection fraction 20-25% in 2014. 3. Coronary artery disease. 4. Hypertension. 5. Hyperlipidemia. 6. Diabetes 2. 7. Chronic hyponatremia. 8. COPD. 9. Chronic anemia. 10. BPH. 11. CVA. PAST SURGICAL HISTORY: 1. ICD. 2. Hip repair. 3. Right knee replacement. 4. Right knee arthroplasty. 5. Hip replacement. SOCIAL HISTORY: Negative for alcohol, tobacco or recreational drug use. REVIEW OF SYSTEMS: Remarkable for diarrhea, loss of appetite, weight loss and failure to thrive. The patient states that he has no energy and no oomph. FAMILY HISTORY: Noncontributory. MEDICATION ALLERGIES: 1. Codeine. 2. Aspirin. HOME MEDICATIONS: 1. Celebrex. 2. Carvedilol. 3. Digitek. 4. Advair. 5. Neurontin. 6. [place]. 7. Prinivil. 8. Metformin. 9. Singulair. 10. Zofran. 11. Protonix 20 mg daily. 12. Crestor. 13. Flomax. 14. Tolterodine tartrate. 15. Ambien. PHYSICAL EXAMINATION: General: On exam, he is a thin, frail, white male in no acute distress. Vital Signs: His blood pressure is currently 105/56, pulse 85, respiration 18, temperature 98.9 degrees. T-max is 99.5 degrees, current T 99.8 degrees. HEENT: Remarkable for temporal muscle wasting. There is no evidence of icterus. His conjunctivae are pale. His oropharyngeal mucosal membranes are dry. Pulmonary: Lungs are clear to auscultation anteriorly. Cardiovascular: He has a regular rate and rhythm. No gallops, or rubs. Abdominal Exam: Reveals epigastric tenderness with no rebound or guarding. He has normoactive bowel sounds. Extremities: Bilaterally are negative for cyanosis, clubbing, or edema. He has profound muscle wasting in his upper thigh and his calf muscles. OBJECTIVE DATA: Reveals a hemoglobin of 6.7, hematocrit of 19.4 and white count of 23.3, with 391,000 platelets. His PT is 11.2 with an INR of 1.06 and a PTT of 26.7. His ABG is remarkable for a pH of 7.51, pCO2 35, PO2 78 on 21% oxygen. Serum chemistries is remarkable for a sodium of 128, potassium 3.2, chloride 85, CO2 26, BUN 74, creatinine 1.3 with a glucose of 227. Calcium is 8.5, phosphorus is 3.5, magnesium 1.5, total bilirubin 0.46, AST 12, ALT 9, alkaline phosphatase 77, CK of 45, troponin 0.051, BMP of 3151, total protein 5.7, albumin 3.3. IMPRESSION: 1. Coffee-ground emesis. 2. Melena. 3. Epigastric pain. RECOMMENDATION: 1. We will place the patient on the schedule for an EGD in the morning. Because of his diarrhea, I will plan to perform small bowel biopsies. 2. Depending on findings, the patient may need a colonoscopy as I do not have a clear-cut explanation to account for his significant weight reduction. 3. Await his thyroid test results. 4. Please monitor serial hemoglobin and hematocrit. Please transfuse as indicated. 5. I agree with the Protonix drip. 6. Additional recommendations to follow based on his clinical course. 7. The patient may have a few ice chips for mouth quality. 8. Additional recommendations to follow based on his endoscopic findings. cc: MD Wilian Jade DO Peter Johnson, MD Katherine Takundwa, MD MTDD
[2016-09-07] MEDS ORDERED: POTASSIUM PHOSPHATE 30 MMOL in NS 250 ML IV ONE (08:00)
[2016-09-07] MEDS: FOLIC ACID 1 MG in NS 50 ML IV SCH (08:03)
[2016-09-07] MEDS ORDERED: DIPRIVAN 1% ONE (09:54)
[2016-09-07] MEDS ORDERED: VERSED ONE (10:07)
[2016-09-07] MEDS ORDERED: FENTANYL ONE (10:14)
[2016-09-07] MEDS ORDERED: XYLOCAINE-MPF 2% ONE (10:27)
[2016-09-07] MEDS: CARAFATE LIQUID PO SCH ×3 (11:11→19:47)
--- NOTE | 2016-09-07 11:38 | CONSULTATION ---
DATE OF CONSULTATION: 09/06/2016 PRIMARY CARE PROVIDER: Dr. Wilian Lopez. REASON FOR THE CONSULTATION: Rule out infection of the right knee. Status post knee replacement. HISTORY OF PRESENT ILLNESS: Mr. Schofield has a history of multiple illnesses including ischemic cardiomyopathy, coronary artery disease, congestive heart failure, chronic hyponatremia and status post a right knee replacement. He presented to the ER on 09/06/2016 since with hypotension and confusion. His reported he also had fever, chills and vomiting as well as dark tarry stools. At the time of admission, it was also noted that his right knee was swollen and warm to the touch so [facility] was consulted to rule out infection of the right knee. Mr. Schofield has also had a recent right knee arthroplasty revision done on 06/22/[address] Limon. PAST MEDICAL HISTORY: 1. Ischemic cardiomyopathy. 2. Systolic heart failure. 3. Coronary artery disease. 4. Hypertension. 5. Hyperlipidemia. 6. Type 2 diabetes. 7. Chronic hyponatremia. 8. COPD. 9. Chronic anemia. 10. BPH. 11. History of CVA in 2011. SURGICAL HISTORY: 1. ICD. 2. Hip repair. 3. Right total knee arthroplasty. 4. Right total knee arthroplasty revision done on 06/22/2016. SOCIAL HISTORY: Patient denies any tobacco, alcohol or drug use. Lives with his . FAMILY HISTORY: Noncontributory. HOME MEDICATIONS: 1. Coreg 12.5 mg b.i.d. 2. Celebrex 200 mg as needed. 3. Advair 550 one inhale b.i.d. 4. Neurontin 100 mg p.o. b.i.d. 5. [place] 10 as needed for pain. 6. Prinivil 10 mg daily. 7. Metformin 500 mg b.i.d. 8. Singulair 10 mg daily. 9. Zofran 4 mg as needed for nausea. 10. Protonix 20 mg daily. 11. Crestor 10 mg p.o. at bedtime. 12. Flomax 0.4 mg p.o. daily. 13. Ambien 5 mg at bedtime. ALLERGIES: Codeine and aspirin. Review of Systems: 12 point review of systems was completed and negative except for what has been mentioned in the HPI and physical exam. PHYSICAL EXAM: General: This is a frail, elderly-appearing 70-year-old man that is currently lying in the bed in no acute distress with some slight confusion. Neurological : He is awake, and alert. He does follow commands but he is somewhat confused. Chest: Respirations are even and nonlabored. CV: Regular rate and rhythm. Right lower extremity: The right knee does have some large bony prominences. There is no edema or erythema at present. It is not warm. He does have decreased range of motion with flexion and extension. He has a good pedal and tibial pulse. There are no lacerations or abrasions. ASSESSMENT AND PLAN: Status post right knee total arthroplasty revision. We had planned to do a possible joint aspiration and send the fluid for cultures; however, at time of assessment, the knee shows no signs and symptoms of infection at all. There is no swelling or edema or anything to suggest fluid in the joint. We will order physical therapy to improve his range of motion and we will be available as needed to reassess the knee. Thank you for the consult. Dictated by ZENA Amin for Tim Limon MD cc: ZENA Amin MD [facility]
--- NOTE | 2016-09-07 11:38 | PROGRESS NOTE ---
DATE: 09/07/2016 SUBJECTIVE: This patient states that he is feeling better. He is complaining of mild to moderate right knee pain. I do not see any signs of infection or swelling. He denies nausea, vomiting. No diarrhea, no constipation. OBJECTIVE: Vital Signs: Temperature 98.8 degrees, pulse 79, respiratory rate 12, blood pressure 117/72, oxygen saturation 99 on room air. General: This is a 70-year-old, male in no acute distress. He looks cachectic. HEENT: Head normocephalic. No trauma. PERRLA. Neck: Supple. No JVD. No masses. Central trachea. Chest: Clear to auscultation. No wheezing. No rales. Cardiovascular: RRR. Abdomen: Soft, nontender, nondistended. No hepatosplenomegaly. Extremities: No edema. No clubbing. No cyanosis. Right knee pain. Neurological Examination: The patient is alert and oriented x3. No focal deficits. Laboratory: WBC 20.5, hemoglobin 9.2, hematocrit 26.5, platelets 386,000. Sodium 133, potassium 3.4, chloride 97, bicarbonate 21, BUN is 6, creatinine 1.1, glucose 158, calcium 8.6, phosphorus 2.5, albumin 3. Folate 6.8. ASSESSMENT AND PLAN: 1. Toxic-metabolic encephalopathy, resolved. This patient is completely alert and oriented x3. 2. Hypotension. This patient has been off pressors since 6 a.m. today. We will continue to monitor the blood pressure. 3. Upper gastrointestinal bleed with associated anemia. He just came back from endoscopy, pending report and suggestions. 4. Possible septic shock. This patient has leukocytosis and he has been on pressors. We will continue with broad spectrum antibiotics, continue with intravenous fluids. The blood culture and urine culture have been negative so far. 5. Right knee pain. I do not think this patient has an infection. Orthopedic surgery department has been consulted. 6. Hypovolemic hyponatremia. Continue with the same management. This is getting better. 7. Hypokalemia. Potassium is a little bit low. Potassium is 3.4 and magnesium is normal. I will monitor this patient for now. He received already potassium. 8. Ischemic cardiomyopathy/congestive heart failure. No chest pain and shortness of breath at this moment. EKG does show some abnormality but this is chronic. Troponins have been stable. 9. Acute kidney injury. This is getting better. Creatinine decreased from 1.3-1.1 and BUN from 74-60. We will monitor. 10. Nutritional status. This patient just came back from upper endoscopy. A clear liquid diet has been ordered. 11. Hyperglycemia. I am not quite sure if this patient has diabetes. I will ask for a hemoglobin A1c. I will continue to monitor. CRITICAL CARE TIME: 35 minutes. cc: Ar Beaulieu MD
--- NOTE | 2016-09-07 14:31 | CONSULTATION ---
DATE OF CONSULTATION: 09/07/2016 IMPRESSIONS: 1. Recent upper gastrointestinal bleeding related to gastric ulcers. 2. Recent nonsteroidal anti-inflammatory use with naproxen for chronic pain after hydrocodone discontinued 3 weeks ago. 3. Gastroesophageal reflux disease for which patient is chronically on Protonix. 4. Ischemic cardiomyopathy. A. The patient initially presented with cerebrovascular accident and had ST elevation on ECG. 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 Left ventricular ejection fraction 20 to 25%. Medical management was advocated at that time in 2001. B. Patient treated with anticoagulation with warfarin for approximately 1 year, after which he was switched to Plavix. Echocardiography in 2014 reported no evidence of apical thrombus. C. Status post implantable defibrillator in July [address] Abel device. 5. Mild bilateral carotid disease. 6. Diabetes mellitus. 7. Hyperlipidemia. 8. History of previous gastrointestinal bleed with gastritis diagnosed by EGD in August 2011. 9. Chronic recurrent hyponatremia. 10. Chronic pain syndrome related primarily to degenerative joint disease of the knees. Patient has been on hydrocodone chronically in the past. 11. Chronic obstructive pulmonary disease. 12. Prostate hypertrophy. RECOMMENDATIONS: 1. Continue current cardiovascular regimen unchanged with exception of holding Plavix given recent upper gastrointestinal bleed. Patient currently appears to be euvolemic but certainly he has potential for developing congestive heart failure. 2. Conservative cardiovascular management overall. HISTORY: This 70-year-old white male with a past history of ischemic cardiomyopathy as outlined above, apical aneurysm, previous apical thrombus, previous cerebrovascular accident possibly embolic in 2011, type 2 diabetes mellitus, hyperlipidemia, hypertension, and DJD of the knees, was admitted for further management of upper GI bleeding. He is not able to give much in the way of history right now as he is just out from upper GI endoscopy. He has been on hydrocodone chronically for chronic pain. He visited his pain specialist about 3 weeks ago. He was unable to pee in the cup at that time, perhaps related to his prostate hypertrophy. His hydrocodone was not refilled. He apparently started taking Naprosyn for his pain. It is not clear how much he was taking. Prior to current admission he started having nausea and vomiting which ultimately became dark emesis, hematemesis. He became hypotensive. He was found to have anemia related to his blood loss and has been transfused. He has been started on antiulcer therapy and Plavix has been withheld. Upper GI endoscopy was just performed which reportedly revealed several small gastric ulcers. He has not had any recent angina or dyspnea. He presently denies dyspnea on supplemental oxygen and reportedly had an oxygen saturation greater 98% on room air. PAST MEDICAL HISTORY: 1. Ischemic cardiomyopathy as outlined above. 2. Hypertension. 3. Hyperlipidemia. 4. Type 2 diabetes mellitus. 5. Previous cerebrovascular accident, possibly embolic. 6. Mild bilateral carotid disease. 7. History of previous GI bleeding related to gastritis in August 2011. 8. Chronic recurrent hyponatremia. 9. Degenerative joint disease. 10. Chronic pain syndrome related to degenerative joint disease. 11. Prostate hypertrophy. 12. Chronic obstructive pulmonary disease. PAST SURGICAL HISTORY: Includes implantable defibrillator with [employer] Abel device, unspecified hip surgery, right knee replacement, revision of right knee arthroplasty June 2016. ALLERGIES: He is allergic or intolerant to codeine and aspirin. MEDICATIONS: Prior to admission as listed. SOCIAL HISTORY: He is . He is a retired [employer] for [employer]. He and his lived in [place], [place] up until about 5 years ago. He has a history of previous cigarette smoking but no longer smokes. He does not drink. FAMILY HISTORY: Negative for premature coronary disease. REVIEW OF SYSTEMS: Not reliably obtainable given patient's grogginess post upper GI endoscopy. PHYSICAL EXAMINATION: General: This is a thin, elderly white male, in no distress. Vital Signs: As recorded are stable. HEENT: Extraocular movements intact. Mucous membranes are moist. Neck: Supple without venous distention. There are no carotid bruits. Chest: Clear to auscultation bilaterally. Cardiac Exam: Reveals a laterally displaced and enlarged PMI suspicious for apical aneurysm. There is a regular rate and rhythm without appreciable murmur or gallop evident. Abdomen: Soft, nontender. Bowel sounds normal. Extremities: Without edema. Neurologic Exam: Reveals him to be awake and responsive. Speech is fluent. He is hard of hearing. Moves all 4 extremities equally well. DIAGNOSTIC DATA: ECG demonstrates sinus rhythm. Left anterior fascicular block. Anteroseptal infarct of undetermined age with chronic ST elevation in anterior leads, probably related to aneurysm. cc: Cameron Hansen MD
[2016-09-07] MEDS: MORPHINE IV PRN ×2 (16:27→19:47)
[2016-09-07] MEDS: VANCOMYCIN 1,200 MG in NS 250 ML IV SCH (19:47)
[2016-09-08] MEDS: CARAFATE LIQUID PO SCH ×4 (02:11→19:57)
--- NOTE | 2016-09-08 03:03 | OPERATIVE NOTE ---
PROCEDURE DATE: 09/07/2016 REFERRING PHYSICIAN: Dr. Puja Valenzuela M.D. PRIMARY CARE PROVIDER: Dr. Wilian Lopez M.D. PRIMARY BOARD CERTIFIED MUSIC THERAPIST: Dr. Cameron Hansen M.D. INDICATION FOR CONSULTATION: 1. Coffee ground emesis. 2. Melena. 3. Epigastric tenderness. 4. NSAID use. 5. Nausea. 6. Anorexia. 7. Unplanned weight loss. PROCEDURE PERFORMED: Esophagogastroduodenoscopy. CONSENT: Informed consent was obtained from the patient and his prior to the procedure. The risks, benefits, and alternatives were discussed. MEDICATIONS: The patient received monitored anesthesia care. PERFORMING PHYSICIAN: Radha Turpin M.D. ASSISTANTS: 1. ST. Radha 2. hCar Wilson RN. 3. Clinton Wilson CRNA. 4. Suleman Man M.D. (anesthesia). COMPLICATIONS: There were no complications. ESTIMATED BLOOD LOSS: None. SPECIMENS REMOVED: None. FINDINGS: After sedation was achieved, the upper endoscope was inserted to the 2nd portion of the duodenum. The hypopharynx appeared normal. In the tubular esophagus, there was grade D erosive esophagitis the entire length of the esophagus. It is possible that there was a single tongue of salmon-colored mucosa consistent with Pack's esophagus in the distal esophagus. The GE junction was hyperemic at 40 cm from the incisors. There was a possible Schatzki's ring, but we did not see the ring on withdrawal. There was a hiatal hernia that spanned from 40-45 cm. In the gastric lumen, there was severe erosive gastritis, with 3 antral ulcers that ranged in size from 6- 12 mm. They all had whitish bases, with no visible vessel, and no stigmata of bleeding. On retroflexed view, there was again gastritis in the fundus. On forward view, the pylorus appeared inflamed, but was patent. There was duodenitis in the duodenal bulb. There was also over 200 mL of retained bilious secretions in the gastric body and fundus that required evacuation. The pylorus appeared inflamed, but was otherwise patent. In the duodenal bulb, there was duodenitis. The second portion of the duodenum appeared normal, as did the ampulla of Vater. After the exam was complete, the lumen was decompressed and the scope was removed without incident. IMPRESSION: 1. Grade D erosive esophagitis. 2. Single tongue of salmon-colored mucosa, consistent with possible Pack's esophagus. 3. Hyperemic gastroesophageal junction. 4. Hiatal hernia. 5. Erosive gastritis. 6. Three antral ulcers. 7. Inflamed pylorus. 8. Duodenitis limited to the bulb. 9. Gastric stasis. RECOMMENDATION: 1. Continue Protonix drip for 72 hours, then transition to IV q.12 hours dosing. 2. Begin Carafate 1 g p.o. 4 times a day. 3. Monitor serial hemoglobin and hematocrit, and transfuse as indicated. 4. He will need a repeat esophagogastroduodenoscopy in 12 weeks to assess for healing. If the ulcers persists, I would recommend biopsy from the gastric, as well as the duodenal, mucosa. 5. Because the patient has evidence of gastric stasis on exam, I recommend a dedicated gastric emptying study. 6. It was noted prior to the procedure that the patient had EKG with changes suggestive of possible myocardial infarction. This was discussed with the family prior to the procedure, who felt that it was reasonable to pursue the procedure. Therefore, I recommend obtaining a formal Cardiology consult. 7. The patient will benefit from initiation of therapy with enteral feeding. I would consider placement of a nasogastric tube to provide enteral nutrition. 8. Additional recommendations to follow based on his clinical course. cc: MD Puja Jade MD Thomas E. Lockard, DO William D. Denney, MD MTDD
[2016-09-08] MEDS: DUONEB (A & A) INH SCH ×3 (03:10→12:30)
[2016-09-08] MEDS: ZOSYN 3.375 GM/NS 3.375 GM/50 ML IVPB IV SCH ×4 (04:08→22:21)
[2016-09-08] MEDS: HUMALOG SUBQ SCH ×5 (06:08→20:19)
[2016-09-08 06:17] LABS: HEMATOCRIT 25.4 % (42.0-52.0); HEMOGLOBIN 8.5 g/dL (14.0-18.0); MCH 30.9 PG (27-31); MCHC 33.5 g/dL (33-37); MCV 92.4 FL (81-99); MPV 9.3 FL (7.4-10.4); RBC 2.75 XMIL (4.7-6.1)
[2016-09-08 06:47] LABS: HEMOGLOBIN A1C 6.4 % (4.8-6.0)
[2016-09-08 07:16] LABS: AGAP 16; ALBUMIN 3.1 g/dL (3.5-5.0); BUN 29 mg/dL (8-22); CALCIUM 8.5 mg/dL (8.8-10.2); CHLORIDE 101 mmol/L (98-107); COSMO 281; MAGNESIUM 1.7 mg/dL (1.5-2.7); POTASSIUM 3.7 mmol/L (3.5-5.1); SODIUM 138 mmol/L (136-145); TCO2 21 mmol/L (25-35)
[2016-09-08] MEDS: FOLIC ACID 1 MG in NS 50 ML IV SCH (09:41)
[2016-09-08] MEDS: PROTONIX 80 MG in NS 80 ML IV SCH ×2 (09:41→17:39)
--- NOTE | 2016-09-08 10:34 | PROGRESS NOTE ---
DATE: 09/08/2016 SUBJECTIVE: This patient is lying comfortably in bed. He is sleepy because he could not sleep very well during the night. The is at the bedside. I discussed with her his DNR status and she states that he will stay a full code. No nausea. No vomiting. He has been NPO because we tried to get a gastric emptying study but he did not cooperate so probably this will be done tomorrow again. We will start this patient on a clear liquid diet for now. OBJECTIVE: Vital Signs: Temperature 99.1 degrees, pulse 74, respiratory rate 14, blood pressure 132/74, oxygen saturation 98 on room air. HEENT: Head normocephalic. No trauma. PERRLA. Neck: Supple. No JVD. No masses. Central trachea. Chest: Clear to auscultation. No wheezing. No rales. Cardiovascular: RRR. Abdomen: Soft, nontender, nondistended. No hepatosplenomegaly. Extremities: No edema. No clubbing. No cyanosis. Mild right knee pain. Decreased muscle mass. Neurological Examination: The patient is sleepy but arousable. Oriented x3. No focal deficits. Laboratory: WBC 12.8, hemoglobin 8.5, hematocrit 25.4, platelets 407,000. Sodium 138, potassium 3.7, chloride 101, bicarbonate 21, BUN 29, creatinine 0.8, glucose 88, calcium 8.5, hemoglobin A1c 6.4, magnesium 1.7, albumin 3.1. ASSESSMENT AND PLAN: 1. Metabolic encephalopathy, resolved. Today, this patient is a little bit somnolent because he could not sleep well during the night. Family members at the bedside. We will continue to monitor. 2. Hypertension. This patient has been off pressors since yesterday. We will continue to monitor the blood pressure. 3. Upper gastrointestinal bleed with associated anemia. He had an endoscopy done yesterday that showed grade D erosive esophagitis, Pack's esophagus, hyperemic gastroesophageal junction, erosive gastritis, hiatal hernia, 3 antral ulcers, inflamed pylorus, duodenitis limited to the bulb, and gastric stasis. Dr. Turpin has recommended to continue with Protonix drip for 72 hours and then switch it to intravenous every 12 hours, Carafate, and probably enteral feedings through an NG tube. Also, she recommended a gastric emptying study. Hopefully, that will be done tomorrow again. 4. Right knee pain. I do not think this patient has an infection. Orthopedic surgery department has been following this patient. 5. Hyponatremia, resolved. 6. Hypokalemia, resolved. 7. Ischemic cardiomyopathy/congestive heart failure. Cardiology is following this patient. They recommended to continue with the same management except Plavix, given his gastrointestinal bleed. 8. Acute kidney injury, resolved. 9. Nutritional status. For now, I will start this patient on Megace. He will be on a clear liquid diet and Ensure with each meal. 10. Physical deconditioning. I will consult physical therapy. 11. Type 2 diabetes. Hemoglobin A1c is 6.4. I checked his medications and he has been on metformin before. We will continue to monitor. Overall, this patient is stable. I will transfer this patient to the medical floor with telemetry. I will continue following the recommendations of Dr. Turpin and also cardiology department. cc: Ar Beaulieu MD
[2016-09-08] MEDS: MORPHINE IV PRN ×4 (10:36→23:03)
--- NOTE | 2016-09-08 14:01 | PROGRESS NOTE ---
DATE: 09/08/2016 SUBJECTIVE: Patient continues without chest discomfort or shortness of breath. OBJECTIVE: Vital Signs: Blood pressure 132/79, heart rate 72 and regular with ECG monitor showing sinus rhythm. There is no significant jugular venous distention. Chest: Is clear to auscultation. Cardiac: Reveals a regular rate and rhythm without appreciable murmur or gallop. There is no evidence of peripheral edema. LAB DATA: Includes a hematocrit of 25.4 which is stable. IMPRESSION: 1. Recent upper GI bleeding related to gastric ulcers in the setting of nonsteroidal anti- inflammatory use. 2. Ischemic cardiomyopathy with left ventricular ejection fraction 20-25%. No signs of congestive heart failure. 3. Diabetes mellitus. 4. Hyperlipidemia. 5. Chronic pain syndrome related to degenerative joint disease of the knees. RECOMMENDATIONS: 1. Continue current cardiovascular regimen unchanged. 2. Resume Plavix when acceptable from a GI standpoint. cc: Cameron Hansen MD
[2016-09-08] MEDS: VANCOMYCIN 1,200 MG in NS 250 ML IV SCH (19:57)
[2016-09-08] MEDS: PEPCID IV SCH ×2 (19:57→20:03)
[2016-09-08] MEDS: MEGACE PO SCH ×2 (19:57→20:03)
[2016-09-08] MEDS ORDERED: SODIUM CHLORIDE 0.9% INJ SCH (21:00)
[2016-09-09] MEDS: MORPHINE IV PRN ×5 (02:05→22:37)
[2016-09-09] MEDS: CARAFATE LIQUID PO SCH ×4 (02:52→22:31)
[2016-09-09] MEDS: DUONEB (A & A) INH SCH ×6 (03:25→23:04)
[2016-09-09] MEDS: ZOSYN 3.375 GM/NS 3.375 GM/50 ML IVPB IV SCH ×4 (05:00→22:31)
[2016-09-09] MEDS: HUMALOG SUBQ SCH ×4 (06:06→22:32)
[2016-09-09 06:07] LABS: MANUAL DIFF NEEDED? NO
[2016-09-09 06:24] LABS: BASO% 0.3 % (0.0-0.8); EOS# 0.35 X1000 (0.0-0.7); EOS% 2.8 % (0.0-10.0); HEMATOCRIT 25.6 % (42.0-52.0); HEMOGLOBIN 8.7 g/dL (14.0-18.0); IMM GRAN# 0.12 X1000 (0.0-0.04); LYMPH% 18.5 % (20.5-51.1); MCH 31.4 PG (27-31); MCV 92.4 FL (81-99); MONO# 1.65 X1000 (0.11-0.59); MONO% 13.2 % (1.7-9.3); MPV 9.3 FL (7.4-10.4); NEUT% 64.2 % (42.2-75.2); PLT 461 X1000 (130-400); RBC 2.77 XMIL (4.7-6.1)
[2016-09-09 06:55] LABS: AGAP 11; BUN 14 mg/dL (8-22); CALCIUM 8.5 mg/dL (8.8-10.2); CHLORIDE 98 mmol/L (98-107); COSMO 268; MAGNESIUM 1.5 mg/dL (1.5-2.7); POTASSIUM 3.7 mmol/L (3.5-5.1); SODIUM 132 mmol/L (136-145); TCO2 23 mmol/L (25-35)
[2016-09-09] MEDS: FOLIC ACID 1 MG in NS 50 ML IV SCH (08:37)
[2016-09-09] MEDS: PEPCID IV SCH (08:37)
[2016-09-09] MEDS: MEGACE PO SCH ×2 (08:37→22:31)
[2016-09-09] MEDS ORDERED: MAGNESIUM SULFATE 2 GM/S.W.I. 2 GM/50 ML IVPB IV ONE (11:30)
--- NOTE | 2016-09-09 11:43 | PROGRESS NOTE ---
DATE: 09/09/2016 SUBJECTIVE: This patient is lying comfortably in bed. Family member at the bedside, his . I discussed to him about the possibility of sending this patient to a rehab center and he agreed. The psychiatric social worker supervisor has been notified. We are working on placement. We have a positive urine culture that showed gram-negative rods, pending sensitivity. I have the stopped the vancomycin and I will continue with the Zosyn. OBJECTIVE: Vital Signs: Temperature 98.1 degrees, pulse 74, respiratory rate 20, blood pressure 132/74, oxygen saturation 100% on room air. HEENT: Head normocephalic. No trauma. PERRLA. Neck: Supple. No JVD. No masses. Central trachea. Chest: Clear to auscultation. No wheezing. No rales. Cardiovascular: Regular rate and rhythm. Abdomen: Soft, nontender, nondistended. No hepatosplenomegaly. Extremities: No edema. No clubbing. No cyanosis. Decreased muscle mass. Neurological: The patient is sleepy, but arousable. Oriented x3. No focal deficits. LABORATORY: WBC 12.4, hemoglobin 8.7, hematocrit 25.6, platelets 461,000. Sodium 132, potassium 3.7, chloride 98, bicarbonate 23. BUN 14, creatinine 0.7, glucose 149. Calcium 8.5, magnesium 1.5. ASSESSMENT AND PLAN: 1. Metabolic encephalopathy, resolved. 2. Hypotension. This patient has been off pressors for 2 days now. Blood pressure has been stable. We will continue to monitor. 3. Upper gastrointestinal bleed with associated anemia. This patient already had an endoscopy done 2 days ago that showed Grade B erosive esophagitis, Pack's esophagus, hyperemic gastroesophageal junction, erosive gastritis, hiatal hernia, 3 antral ulcers, inflamed pylorus, duodenitis limited to the bulb, and gastric ectasis. We will continue with Protonix and Carafate. Gastric emptying study was canceled twice because this patient is not cooperating. 4. Right knee pain. I do not think this patient has an infection. Orthopedic surgery department evaluated already this patient. 5. Hyponatremia. The sodium is borderline low. Will monitor. 6. Hypokalemia, resolved. 7. Ischemic cardiomyopathy/congestive heart failure. Cardiology is following this patient. They recommended to continue with the same management, except Plavix given his gastrointestinal bleed. I do believe that at this point we can restart the Plavix. 8. Acute kidney injury, resolved. 9. Nutritional status. For now, I already started this patient on Megace. I advanced the diet and I consulted the superintendent marine. Continue with Ensure. 10. Physical deconditioning. Continue with physical therapy. 11. Type 2 diabetes. Hemoglobin A1c is 6.4. I checked his medication and he has been on metformin at home. We will continue to monitor. cc: Ar Beaulieu MD
--- NOTE | 2016-09-09 17:06 | PROGRESS NOTE ---
DATE: 09/09/2016 SUBJECTIVE: Patient reports feeling comfortable and denies shortness of breath or chest discomfort on room air. OBJECTIVE: Vital Signs: Blood pressure 130/80, heart rate 79, oxygen saturation 100% on room air. There is no significant jugular venous distention. Chest: Clear to auscultation. Cardiac Exam: Reveals a regular rate and rhythm without appreciable murmur or gallop. There is no evidence of peripheral edema. IMPRESSION: 1. Recent upper GI bleed related to esophagitis and gastric ulcers in the setting of nonsteroidal anti-inflammatory use. 2. Ischemic cardiomyopathy with left ejection fraction 20-25%. No signs of congestive heart failure. 3. Diabetes mellitus. 4. Hyperlipidemia. 5. Chronic pain syndrome related to degenerative joint disease of the knees. RECOMMENDATIONS: 1. Continue current cardiovascular regimen unchanged. 2. Agree with resuming Plavix when acceptable from GI standpoint. 3. We will see further on an as needed basis. cc: Cameron Hansen MD
[2016-09-09] MEDS: PROTONIX PO SCH (22:31)
[2016-09-10] MEDS: CARAFATE LIQUID PO SCH ×2 (02:00→08:36)
[2016-09-10] MEDS: MORPHINE IV PRN ×3 (02:05→09:46)
[2016-09-10] MEDS: DUONEB (A & A) INH SCH ×3 (03:04→11:30)
--- NOTE | 2016-09-10 05:42 | PROGRESS NOTE ---
DATE: 09/09/2016 SUBJECTIVE: The patient continues to be clinically challenging. He has been rude to the nurses, making derogatory comments. He has refused all of his tests and has not been cooperative with any of our recommendations. He states that he just does not feel like it because "that is the way he is". This evening, he was more pleasant than he has been today. However, he refuses to consider any other diagnostic evaluation, stating that he is not interested in trying it. He went down for a gastric emptying study today but was not cooperative with the staff. From a nutrition perspective, he has only consumed a partial diet because we do not provide the specific foods that he likes to eat. He refuses nutrition support. In light of his refusal to engage in his care, I will sign off at this time. It is my understanding that the patient desires to be transferred to rehab for ongoing care. RECOMMENDATIONS: To this end, I recommend the followin. Continue Protonix 40 mg as a PPI. It is actually designed for dosing every 20 hours. Consider omeprazole 40 mg p.o. b.i.d. as an outpatient for 6 weeks and then once a day. 2. I would complete the course of Carafate for 12 weeks and then stop. 3. He is encouraged to eat as he is willing. 4. We will sign off. Thank you for allowing us to participate in the care of this patient. cc: MD Wilian Jade DO Omar J. Sosa-Chirinos, MD William D. Denney, MD MTDD
[2016-09-10] MEDS: PROTONIX PO SCH (06:11)
[2016-09-10] MEDS: ZOSYN 3.375 GM/NS 3.375 GM/50 ML IVPB IV SCH ×2 (06:11→14:02)
[2016-09-10] MEDS: HUMALOG SUBQ SCH (06:15)
[2016-09-10 06:50] LABS: MANUAL DIFF NEEDED? NO
[2016-09-10 07:00] LABS: BASO% 0.3 % (0.0-0.8); EOS# 0.18 X1000 (0.0-0.7); EOS% 1.7 % (0.0-10.0); HEMATOCRIT 26.3 % (42.0-52.0); HEMOGLOBIN 9.2 g/dL (14.0-18.0); IMM GRAN# 0.14 X1000 (0.0-0.04); IMM GRAN% 1.3 % (0.0-0.5); LYMPH# 2.09 X1000 (1.2-3.4); LYMPH% 20.1 % (20.5-51.1); MCH 31.7 PG (27-31); MCV 90.7 FL (81-99); MONO# 1.91 X1000 (0.11-0.59); MONO% 18.3 % (1.7-9.3); MPV 9.4 FL (7.4-10.4); NEUT% 58.3 % (42.2-75.2); PLT 490 X1000 (130-400)
[2016-09-10 07:12] LABS: AGAP 12; BUN 9 mg/dL (8-22); CALCIUM 8.6 mg/dL (8.8-10.2); CHLORIDE 93 mmol/L (98-107); COSMO 256; MAGNESIUM 1.6 mg/dL (1.5-2.7); POTASSIUM 3.6 mmol/L (3.5-5.1); SODIUM 126 mmol/L (136-145); TCO2 21 mmol/L (25-35)
[2016-09-10 07:20] LABS: AGAP 14; BUN 9 mg/dL (8-22); CALCIUM 8.5 mg/dL (8.8-10.2); CHLORIDE 92 mmol/L (98-107); COSMO 255; POTASSIUM 3.8 mmol/L (3.5-5.1); SODIUM 126 mmol/L (136-145); TCO2 20 mmol/L (25-35)
[2016-09-10] MEDS ORDERED: NS 1,000 ML IV SCH (08:21)
[2016-09-10] MEDS: MEGACE PO SCH (08:37)
[2016-09-10] MEDS ORDERED: PLAVIX PO SCH (09:00)
[2016-09-10] MEDS ORDERED: CENTRUM SILVER PO SCH (09:00)
[2016-09-10] MEDS ORDERED: PRILOSEC PO SCH (10:30)
--- NOTE | 2016-09-10 11:06 | DISCHARGE SUMMARY ---
ADMISSION DATE: 09/06/2016 DISCHARGE DATE: 09/10/2016 DISCHARGE DIAGNOSES: 1. Upper gastrointestinal bleed. 2. Metabolic encephalopathy. 3. Hypotension. 4. Hyponatremia. 5. Hypokalemia/resolved. 6. Congestive heart failure. 7. Type 2 diabetes. 8. Acute kidney injury/resolved. 9. Physical deconditioning. CONSULTATIONS: 1. Gastroenterology Department, Dr. Turpin. 2. Cardiology Department, Dr. Cameron Hansen. PROCEDURE: Upper endoscopy dated 09/07/2016 impression: Grade D erosive esophagitis. ADMITTING DIAGNOSES: 1. Single tongue of salmon-colored mucous consistent with possible Pack's esophagus. 2. Hyperemic gastroesophageal junction. 3. Hiatal hernia. 4. Erosive gastritis. 5. Three enteral ulcers. 6. Inflamed pylorus. 7. Duodenitis limited to the bulb. 8. Gastric ectasis. It was recommended to repeat an EGD in about 12 weeks to reassess for healing. HOSPITAL COURSE: A 70-year-old, male with multiple past medical histories including ischemic cardiomyopathy with an ejection fraction of 20% to 25%, coronary artery disease, CHF, chronic hyponatremia and multiple others, presented to the emergency department with hypotension on 09/06/2016. At that time, he was confused and his provided most of the answers. The states that this patient has some kind of flu like symptoms that started the previous Tuesday prior to admission and was associated with vomiting coffee-ground emesis. Also this patient apparently has been having dark, tarry and sticky stools consistent with melena. At the moment of admission even with fluid resuscitation, this patient continued to be hypotensive. Two weeks previous to the admission this patient was at [facility] and he required blood transfusion because of anemia. This patient was admitted to the ICU, Gastroenterology Department and Cardiology Department were consulted. This patient had an EGD done that showed multiple issues including erosive esophagitis, possible Pack's esophagus, hyperemic gastroesophageal junction, gastritis, antral ulcers, inflamed pylorus, duodenitis. We continued treating this patient with IV Protonix, and we started with Carafate. Cardiology Department adjusted his medications. He was improving on a daily basis. He was transferred from the ICU to the regular floor, but because this patient is weak we considered that this patient should be transferred to a rehab facility and they agree with that. Today 09/10/2016, this patient will be transferred to a rehab facility. He needs to follow up with Cardiology Department, primary care physician and Dr. Turpin from Gastroenterology Department. At the moment of discharge, this patient was in stable medical condition. He was tolerating p.o. He was not ambulating. PHYSICAL EXAM: Vital Signs: Temperature 97.8 degrees, pulse 84, respiratory rate 20, blood pressure 116/76, oxygen saturation 98 on room air. HEENT: Head normocephalic. No trauma. PERRLA. Neck: Supple. No JVD. No masses. Central trachea. Chest: Clear to auscultation. No wheezing. No rales. Cardiovascular: RRR. No murmurs. Abdomen: Soft, nontender, nondistended. No hepatosplenomegaly. Extremities: No edema. No clubbing. No cyanosis. Decreased muscle mass. Neurological examination: The patient is sleepy, but arousable. Oriented x3. No focal deficits. Generalized weakness. LABORATORY: WBC 10, hemoglobin 9.2, hematocrit 26.3, platelets 490. Sodium 126, potassium 3.8, chloride 92, bicarbonate 20, BUN 9, creatinine 0.7, glucose 160, calcium 8.5, magnesium 1.6, albumin 3. DISCHARGE MEDICATIONS: 1. Megace 40 mg p.o. twice a day. 2. Multivitamin. 3. Centrum Silver 1 tablet p.o. daily. 4. Omeprazole 40 mg p.o. twice a day for 6 weeks, then once a day. 5. Clopidogrel 75 mg p.o. daily. 6. Carafate 1 g 4 times a day for 12 weeks. 7. Tamsulosin 0.4 mg p.o. as needed. 8. Montelukast 10 mg p.o. daily as needed. 9. Metformin 500 mg p.o. twice a day. 10. Carvedilol 12.5 mg p.o. twice a day. 11. Crestor 10 mg p.o. daily. 12. Digoxin 125 mcg p.o. daily. 13. Gabapentin 100 mg p.o. twice a day. 14. Advair Diskus 1 inhalation twice a day. 15. Tolterodine tartrate 4 mg p.o. daily. 16. Ondansetron 4 mg p.o. as needed p.r.n. 17. Lisinopril 10 mg p.o. daily. 18. [place] 10 1-2 tablets every 6 hours p.r.n. pain. 19. Ambien 5 mg p.o. at bedtime as needed. cc: Ar Beaulieu MD
[2016-09-10 11:46] VITALS: BP 123/62
[2016-09-10] MEDS ORDERED: CARAFATE PO SCH (13:00)
[2016-09-10] MEDS ORDERED: MORPHINE IV PRN (13:38)
[2016-09-10] MEDS: FOLIC ACID 1 MG in NS 50 ML IV SCH (14:02)
== END 2016-09-10 14:24 ==
LOC: SUPCPDRO → ED 12:11 → EDIPHOLD 16:14 → SUATTDRO 16:14 → ICU 18:11 → EDIPHOLD 19:00 → ICU 20:32 → 4N 09-08 13:54
PROVIDERS: ATTEND Internal Medicine